=== PATIENT | female | born 1980 | race Caucasian/White ===

== ENCOUNTER 2017-02-14 13:44 | Emergency (ER) | payer OTHER ==
[~2017-02-14] VITALS: Ht 175.3 cm; Wt 79.5 kg
[2017-02-14 13:47] VITALS: BP 154/99; PULSE 79; RESP 16; O2SAT 99
[2017-02-14 14:02] VITALS: BP 148/83; PULSE 80; RESP 16; O2SAT 100
--- NOTE | 2017-02-14 15:33 | ED.REPORT ---
HPI-URI / Cough / Cold Date of Service Feb 14, 2017 ED Provider: Reinier Edwards PA-C Maria C is otherwise healthy 36-year-old female who presents with chief complaint cough. She reports a dry, persistent, painful cough has been present for 2 days. This is preceded by approximately 4 weeks of subjective fever, sweats, swollen glands, sore throat, congestion. He is quite frustrated with his cough. She reports that her children have upper respiratory infections and fevers Denies fever. Denies history of asthma. Admits to 15 pack year smoking history. Nursing Notes Stated Complaint: SEVERELY SICK/COUGH Chief Complaint: FLU/Cold Symptoms Nursing Notes Reviewed: Yes Allergies: Coded Allergies: Penicillins (Verified Allergy, Mild, RASH, 02/14/17) Scheduled Promethazine DM Syrup (Promethazine DM Syrup) 118 Ml Syrup 5 ML PO QID General Time Seen by MD: 14:46 Chief Complaint Cough, non-productive Review of Systems General: Admits fever, chills, malaise. HEENT: Admits congestion, headache, sore throat. Respiratory: Admits cough, denies dyspnea, shortness of breath, wheezing Cardiovascular: Denies chest pain, palpitations. Gastrointestinal: Denies vomiting, diarrhea, abdominal pain. Genitourinary: Denies frequency, urgency, dysuria, hematuria. Otherwise as noted in HPI. Physical Exam General: Well appearing, well developed, well nourished, no acute distress. Head: Atraumatic, normocephalic. No mastoid tenderness. Eyes: No scleral icterus or injection. No discharge. PERRL. Vision grossly intact. Small conjunctival hemorrhage noted on the lateral aspect of right eye Ears: Pinna and tragus nontender with manipulation. External auditory canal patent, atraumatic and without discharge. Tympanic membrane injected, shiny and translucent without fluid, bulging, retraction or perforation. Hearing grossly intact. Nose: Symmetrical, nares patent without discharge. No frontal or maxillary sinus tenderness. Mouth/pharynx: normal dentition, mucus membranes moist. Tonsils 2+ and symmetrical, uvula midline. Pharynx noninjected, no cobblestoning or discharge. Voice clear. Neck: Mild tender anterior lymphadenopathy. Trachea midline. Respiratory: Clinically evident dry cough. Regular rate and rhythm. Breath sounds present, clear to auscultation and equal bilaterally. No respiratory distress. No increased work of breathing, speaks in complete sentences. Cardiovascular: Regular rate and rhythm, without murmur, gallop or rub. No pedal edema. Gastrointestinal: Abdomen flat and non-tender without guarding or rebound. Bowel sounds normoactive. Skin: Warm and dry. Neurological: Grossly nonfocal. Psychological: Alert and oriented. Speech appropriate, linear and logical. Behavior appropriate. Initial Vital Signs Vital Signs (First) Date Time Temp Pulse Resp B/P Pulse Ox O2 Delivery O2 Flow Rate FiO2 02/14/17 13:47 36.6 79 16 154/99 99 Room Air Initial VS: Reviewed, Vital signs abnormal (the blood pressure) Re-Eval/Medical Decision Med Decision/Clinical Course Otherwise healthy 36 old female presents with chief complaint of cough this last approximately 2 days. Preceded by almost 1 month of upper respiratory symptoms. Seen in other clinics, reports a negative rapid strep. Very frustrated with her cough and that none of the medications she has tried are helping it. Benign physical examination with clear lung sounds bilaterally in all hernandez. Clinically evident dry cough. Vital signs within normal limits with exception of mildly elevated blood pressure. PERC negative. I do not see indication to perform imaging at this time, as she demonstrates clear lung sounds, is afebrile and has only had a cough for 2 days. This is most likely viral upper respiratory infection and have low concern for strep, pneumonia, sinusitis, PE. Discharge the patient home with prescription for promethazine DM, and advised [id number] to medical care. Advise primary care follow-up, provided emergent return precautions. Patient understands and agrees with plan. Discharge & Departure Impression: Primary Impression: Upper respiratory infection URI type: unspecified viral URI Qualified Code: J06.9 - Acute upper respiratory infection, unspecified Disposition: Home Discharge Condition All VS Reviewed: Yes Condition: Additional Instructions: History and physical are reassuring that this is unlikely to be a condition such as pneumonia or strep throat that requires antibiotic treatment. I believe that you have a viral upper respiratory infection. Rest, drink small amounts of fluids throughout the day, and eat small amounts of food as tolerated. The treatment is largely symptomatic: I typically recommend doxylamine/ dextromethorphan (brand name: Robitussin Extra Strength Nighttime Cough DM) for use at night, which will help you sleep and reduce cough. If your pharmacy does not have this, ask your pharmacist to recommend an alternative. Pain and fever is best treated with 400 mg of ibuprofen (Advil, Motrin) every 6 hours, or 1000 mg of acetaminophen (Tylenol) every 6 hours. These drugs can be taken at the same time for more severe pain. Pseudoephedrine (Sudafed) taken in the morning will help relieve nasal congestion. In many pharmacies this is kept behind the counter, so ask the pharmacist. Cepacol lozenges are very helpful for sore throat. I will also give you a prescription for Promethazine DM syrup. He takes up to 4 times a day. This is likely to make you sleepy so be sure not to drive. Follow-up with your primary care provider if your symptoms have not significantly improved in a week. Remember that sometimes a cough can take up to a month to completely resolve. Return to the emergency department for new or worsening symptoms including chest pain, shortness of breath, difficulty breathing or speaking. Referrals: OTHER,PHYSICIAN Dr. Dnag EDSupervising Provider for [facility]: Flavio Billings Seth PA-C Feb 14, 2017 15:33
[2017-02-14] MEDS ORDERED: D-ME118S8 PO (15:46)
[2017-02-14] MEDS ORDERED: [UNRECOGNIZED DRUG - OTHER] PO ONE (16:00)
[2017-02-14] MEDS ORDERED: [UNRECOGNIZED DRUG - OTHER] PO ONE (16:20)
[2017-02-14] MEDS ORDERED: Codeine-guaiFENesin 5 mL Syrup PO ONE (16:55)
== END 2017-02-14 17:14 | disposition home or self-care (01) ==
LOC: SED 13:44
DX: J06.9 Acute upper respiratory infection, unspecified (principal); R50.9 Fever, unspecified; R61 Generalized hyperhidrosis; R59.9 Enlarged lymph nodes, unspecified; J02.9 Acute pharyngitis, unspecified; Z87.891 Personal history of nicotine dependence; Z88.0 Allergy status to penicillin